=== PATIENT | female | born 1990 | race Caucasian/White ===

== ENCOUNTER 2018-03-20 20:50 | Emergency (ER) | payer MEDICAID, OTHER ==
[~2018-03-20] VITALS: Ht 154.9 cm; Wt 68.5 kg
[2018-03-20 20:55] VITALS: BP 158/89
[2018-03-20 23:22] VITALS: BP 133/78
== END 2018-03-20 23:22 | disposition home or self-care (01) ==
LOC: MED 20:50
DX: F41.9 Anxiety disorder, unspecified (principal); F12.90 Cannabis use, unspecified, uncomplicated
CPT/HCPCS: 81002; 81025; 99284